=== PATIENT | female | born 1975 | race Caucasian/White ===

== ENCOUNTER 2018-01-20 22:53 | Emergency (ER) | payer BC ==
[~2018-01-20] VITALS: Ht 175.3 cm; Wt 86.2 kg
[~2018-01-20 22:53] MED LIST changes: -TRAZ50 PO; -Zofran Odt4 MG SL
[2018-01-21 01:02] LABS: BASOPHILS ABSOLUTE AUTO 0.02 K/mm3 (0.00-0.23); BASOPHILS PERCENT AUTO 0 % (0-2); EOSINOPHILS ABSOLUTE AUTO 0.21 K/mm3 (0.00-0.68); EOSINOPHILS PERCENT AUTO 4 % (0-6); Hematocrit 39.7 % (33.0-51.0); Hemoglobin 12.5 g/dL (11.5-16.0); IMMATURE GRAN ABSOLUTE AUTO 0.01 K/mm3 (0.00-0.10); IMMATURE GRAN PERCENT AUTO 0 % (0-1); LYMPHOCYTES ABSOLUTE AUTO 1.84 K/mm3 (0.84-5.20); LYMPHOCYTES PERCENT AUTO 32 % (21-46); MONOCYTES ABSOLUTE AUTO 0.58 K/mm3 (0.16-1.47); MONOCYTES PERCENT AUTO 10 % (4-13); Mean Corpuscular HGB 27.4 pg (26.0-34.0); Mean Corpuscular HGB Conc 31.5 g/dL (31.5-36.5); Mean Platelet Volume 9.2 fL (9.1-12.4); NEUTROPHILS ABSOLUTE AUTO 3.17 K/mm3 (1.96-9.15); NEUTROPHILS PERCENT AUTO 54 % (41-73); Platelet Count 442 K/mm3 (150-400); RDW Coefficient Variation 16.2 % (11.7-14.2); RDW Standard Deviation 52.1 fL (35.1-46.3); Red Blood Cell Count 4.56 M/mm3 (3.80-5.20); White Blood Cell Count 5.83 K/mm3 (4.00-11.30)
[2018-01-21 01:09] LABS: Mean Corpuscular Volume 87 fL (80-100)
[2018-01-21 01:21] LABS: Alanine Aminotransfer (ALT/SGP 25 U/L (12-78); Albumin, Blood 3.6 g/dL (3.4-5.0); Albumin/Globulin Ratio 0.8 (0.8-1.8); Alk Phos 51 U/L (50-136); Anion Gap 8 mmol/L (6-16); Aspartate Aminotrans (AST/SGOT 21 U/L (12-37); Bilirubin, Total 0.2 mg/dL (0.1-1.0); Blood Urea Nitrogen 7 mg/dL (8-24); Bun/Creatinine Ratio 10.9 (12.0-20.0); CO2, Blood 27 mmol/L (21-32); Chloride, Blood 105 mmol/L (98-108); Creatinine, Blood 0.64 mg/dL (0.40-1.00); Globulin, Blood 4.6 g/dL (2.2-4.0); Glomerular Filtration Rate >60 (60-); Glucose, Blood 97 mg/dL (70-99); Potassium, Blood 4.1 mmol/L (3.5-5.5); Sodium, Blood 140 mmol/L (136-145); Total Protein, Blood 8.2 g/dL (6.4-8.2)
[2018-01-21] MEDS ORDERED: TRAZ50 PO (01:39)
[2018-01-21 04:07] LABS: Troponin I <0.015 ng/mL (0.000-0.040)
[2018-01-21] MEDS ORDERED: Zofran Odt4 MG SL (04:23)
== END 2018-01-21 04:56 | disposition home or self-care (01) ==
LOC: ER 22:53
PROVIDERS: Emergency Medicine
DX: K21.9 Gastro-esophageal reflux disease without esophagitis (principal); R11.2 Nausea with vomiting, unspecified; Z88.8 Allergy status to other drugs, medicaments and biological substances; Z90.49 Acquired absence of other specified parts of digestive tract; Z98.890 Other specified postprocedural states
CPT/HCPCS: 71046; 80053; 83690; 84484; 85025; 93005; 93010; 96361; 96374; 96375; 99284; J1885; J2405; J7030

== ENCOUNTER → 2018-01-20 | Outpatient (CLI) | payer BC ==
[~2018-01-20] MED LIST: MECL25 PO; OXYACE5T PO; PROM25 PO; SCOPTP TOP; TRAZ50 PO; Zofran Odt4 MG SL
[2018-01-20 15:04] LABS: BASOPHILS ABSOLUTE AUTO 0.02 K/mm3 (0.00-0.23); BASOPHILS PERCENT AUTO 0 % (0-2); EOSINOPHILS PERCENT AUTO 4 % (0-6); Hematocrit 38.3 % (33.0-51.0); Hemoglobin 12.3 g/dL (11.5-16.0); IMMATURE GRAN ABSOLUTE AUTO 0.01 K/mm3 (0.00-0.10); IMMATURE GRAN PERCENT AUTO 0 % (0-1); LYMPHOCYTES ABSOLUTE AUTO 1.51 K/mm3 (0.84-5.20); LYMPHOCYTES PERCENT AUTO 32 % (21-46); MONOCYTES ABSOLUTE AUTO 0.46 K/mm3 (0.16-1.47); MONOCYTES PERCENT AUTO 10 % (4-13); Mean Corpuscular HGB Conc 32.1 g/dL (31.5-36.5); Mean Corpuscular Volume 84 fL (80-100); Mean Platelet Volume 9.3 fL (9.1-12.4); NEUTROPHILS PERCENT AUTO 53 % (41-73); Platelet Count 423 K/mm3 (150-400); RDW Coefficient Variation 16.2 % (11.7-14.2); RDW Standard Deviation 50.3 fL (35.1-46.3); Red Blood Cell Count 4.55 M/mm3 (3.80-5.20)
[2018-01-20 15:24] LABS: Alanine Aminotransfer (ALT/SGP 25 U/L (12-78); Albumin, Blood 3.6 g/dL (3.4-5.0); Albumin/Globulin Ratio 0.9 (0.8-1.8); Alk Phos 51 U/L (50-136); Anion Gap 6 mmol/L (6-16); Aspartate Aminotrans (AST/SGOT 16 U/L (12-37); Bilirubin, Total 0.2 mg/dL (0.1-1.0); Blood Urea Nitrogen 7 mg/dL (8-24); Bun/Creatinine Ratio 10.1 (12.0-20.0); CO2, Blood 26 mmol/L (21-32); Chloride, Blood 108 mmol/L (98-108); Creatinine, Blood 0.69 mg/dL (0.40-1.00); Globulin, Blood 4.2 g/dL (2.2-4.0); Glomerular Filtration Rate >60 (60-); Glucose, Blood 90 mg/dL (70-99); Potassium, Blood 3.8 mmol/L (3.5-5.5); Sodium, Blood 140 mmol/L (136-145); Total Protein, Blood 7.8 g/dL (6.4-8.2)
== END ==
LOC: LAB SHORT 14:57 → LAB 14:57
PROVIDERS: Physician Assistant
DX: R10.9 Unspecified abdominal pain (principal)
CPT/HCPCS: 80053; 83690; 85025

== ENCOUNTER → 2018-09-07 | Outpatient (CLI) | payer BC ==
[~2018-09-07] MED LIST changes: +Augmentin 875-1 EACH PO; +HYDR1TAB94 PO; +Omeprazole20 M1; +TRAZ50 PO; +Zofran Odt4 MG SL
== END ==
LOC: LAB 10:00 → LAB SHORT 10:00
PROVIDERS: Student in an Organized Health Care Education/Training Program
DX: Z12.4 Encounter for screening for malignant neoplasm of cervix (principal)
CPT/HCPCS: G0145

== ENCOUNTER 2018-09-10 00:20 | Emergency (ER) | payer OTHER, BC ==
[~2018-09-10] VITALS: Ht 175.3 cm; Wt 90.7 kg
[~2018-09-10 00:20] MED LIST changes: -Augmentin 875-1 EACH PO; -HYDR1TAB94 PO; -Omeprazole20 M1
[2018-09-10] MEDS ORDERED: HYDR1TAB94 PO (00:57)
[2018-09-10] MEDS ORDERED: Omeprazole20 M1 (00:57)
[2018-09-10] MEDS ORDERED: Augmentin 875-1 EACH PO (01:01)
[2018-09-11 06:19] LABS: HCV ANTIBODY 0.1 (0.0-0.9); HIV SCREEN 4TH GENERATION WRFX Non Reactive (Non Reactive)
== END 2018-09-10 02:15 | disposition home or self-care (01) ==
LOC: ER 00:20
PROVIDERS: Emergency Medicine
DX: S41.152A Open bite of left upper arm, initial encounter (principal); W50.3XXA Accidental bite by another person, initial encounter; Z79.899 Other long term (current) drug therapy
CPT/HCPCS: 36415; 84460; 86317; 86803; 87389; 90471; 90714; 99283

== ENCOUNTER 2020-11-27 06:12 | Day surgery (SDC) | payer BC ==
[~2020-11-27] VITALS: Ht 175.3 cm; Wt 90.6 kg
[~2020-11-27 06:12] MED LIST changes: +Augmentin 875-1 EACH PO; +HYDR1TAB94 PO; +Omeprazole20 M1
[2020-11-27] MEDS ORDERED: Atarax10 MG PO (07:00)
--- NOTE | 2020-11-27 07:15 | NUR ---
11/27/20 0715 CONNIE [facility] PT TO PRE OP, IV IN L HAND. PT VSS ON ROOM AIR. LUNG SOUNDS CLEAR THROUGHOUT. ENGAGED IN PRE OP TEACHING/POST OP TEACHING. ALL QUESTIONS ASKED AND ANSWERED.
--- NOTE | 2020-11-27 07:44 | NUR ---
11/27/20 0744 Ish Bender BUPIVACAINE 0.5% 30 MLS MIXED WITH EPI 0.15 MLS TO CONSTITUTE BUPIVACAINE 0.5% 1:200,000 PER ORDER, FOR INJECTION AT OPSITE BY DR. CAMEJO.
== END 2020-11-27 09:05 | disposition home or self-care (01) ==
LOC: ORSCSDS 06:12
PROVIDERS: Podiatrist Foot & Ankle Surgery
PROC: 0QSQ04Z Reposition Right Toe Phalanx with Internal Fixation Device, Open Approach (ICD-10-PCS; principal; 2020-11-27 07:30)
PROC: 0QSN04Z Reposition Right Metatarsal with Internal Fixation Device, Open Approach (ICD-10-PCS; principal; 2020-11-27 07:30)
DX: M20.11 Hallux valgus (acquired), right foot (principal); K21.9 Gastro-esophageal reflux disease without esophagitis; Z79.899 Other long term (current) drug therapy
CPT/HCPCS: C1713; C1769; J0171; J0690; J1100; J2250; J2405; J2704; J3010

== ENCOUNTER 2022-09-06 23:30 | Emergency (ER) | payer OTHER, BC ==
[~2022-09-06] VITALS: Ht 175.3 cm; Wt 90.7 kg
[~2022-09-06 23:30] MED LIST changes: +Atarax10 MG PO
== END 2022-09-07 00:15 | disposition home or self-care (01) ==
LOC: ER 23:30
DX: Z77.098 Contact with and (suspected) exposure to other hazardous, chiefly nonmedicinal, chemicals (principal); Z79.899 Other long term (current) drug therapy
CPT/HCPCS: 99282

== ENCOUNTER → 2025-05-22 | Outpatient (CLI) | payer BC | LOC: LAB SHORT 15:47 → LAB 15:47 | PROVIDERS: Family Medicine | DX: Z01.419 Encounter for gynecological examination (general) (routine) without abnormal findings (principal) | CPT/HCPCS: 87624; G0123 ==

== ENCOUNTER 2025-06-11 20:44 | Emergency (ER) | payer OTHER, BC ==
[~2025-06-11] VITALS: Ht 175.3 cm; Wt 81.7 kg
[2025-06-11 20:55] VITALS: BP 156/80
== END 2025-06-11 23:12 | disposition home or self-care (01) ==
LOC: ER 20:44
DX: S50.12XA Contusion of left forearm, initial encounter (principal); M25.532 Pain in left wrist; W50.4XXA Accidental scratch by another person, initial encounter; X50.1XXA Overexertion from prolonged static or awkward postures, initial encounter
CPT/HCPCS: 73090; 73110; 90471; 90715; 99283-25; A9270

== ENCOUNTER → 2025-07-16 | Outpatient (CLI) | payer BC | LOC: LAB 17:09 → LAB SHORT 17:09 | DX: R30.0 Dysuria (principal) | CPT/HCPCS: 87086 ==

== ENCOUNTER 2025-08-18 10:51 | Day surgery (SDC) | payer BC ==
[2025-08-18] VITALS (31 sets, daily range): BP systolic 96–209; BP diastolic 67–184
[~2025-08-18] VITALS: Ht 175.3 cm; Wt 81.5 kg
[~2025-08-18 10:51] MED LIST changes: +Inderal40 MG PO; +OMEP20ER PO; -Omeprazole20 M1; +PANT40 PO
[2025-08-18] MEDS ORDERED: Norco 10-325 T1 EACH PO (12:30)
[2025-08-18] MEDS ORDERED: IBUP400 PO (12:31)
[2025-08-18] MEDS ORDERED: EXCEDRIN PM HE1 EACH PO (12:31)
--- NOTE | 2025-08-18 12:46 | NUR ---
Ambulatory in Day Surgery History, Chart, Medications and Allergies reviewed before start of procedure. Pre-Op teaching done. Pt verbalizes understanding. Patient States Post-Procedure ride home has been arranged.
[2025-08-18] MEDS ORDERED: Benzocaine Oral Spray 0.5ML UD ONE (13:12)
[2025-08-18] MEDS ORDERED: FentaNYL Citrate 50 MCG/ML 2 ML Injection ONE (13:22)
[2025-08-18] MEDS ORDERED: Midazolam HCl 1MG / ML 2ML Vial ONE (13:22)
--- NOTE | 2025-08-18 13:31 | NUR ---
08/18/25 John1 Keli Guevara CONFIRMED AND REVIEWED H&P, MEDCICATIONS, ALLERGIES, MEDICAL HISTORY, RESPIRATORY HISTORY, VITAL SIGNS, 3-LEAD EKG, CONSENTS, AND PHYSICIAN ORDERS. PATIENT CONFIRMS NPO STATUS AND AGREES WITH SCHEDULED PROCEDURE. MONITOR INTACT WITH CONTINUOUS PULSE OXIMETRY, CAPNOGRAPHY, 3-LEAD EKG, INTERMITTENT BP. SUPPLEMENTAL O2 TO BE TITRATED THROUGHOUT PROCEDURE TO MAINTAIN O2 SATURATION ABOVE 90%. PATIENT DETERMINED TO BE ASA APPROPRIATE FOR PROPOFOL SEDATION PRIOR TO START OF PROCEDURE BY . MALLAMPATI CLASS 2 AIRWAY: COMPLETE VISUALIZATION OF THE UVULA.
--- NOTE | 2025-08-18 14:51 | NUR ---
Discharge instructions reviewed with patient. Patient verbalizes understanding. Copy given to patient to take home. Patient States Post-Procedure ride home has been arranged. Discharged via wheelchair to private car for ride home.
== END 2025-08-18 14:51 | disposition home or self-care (01) ==
LOC: ORSCMMR 10:51 → ORD 11:45 → ORSCMMR 12:45
PROVIDERS: Family Medicine
PROC: 0DB78ZX Excision of Stomach, Pylorus, Via Natural or Artificial Opening Endoscopic, Diagnostic (ICD-10-PCS; principal; 2025-08-18 12:45)
PROC: 0DJD8ZZ Inspection of Lower Intestinal Tract, Via Natural or Artificial Opening Endoscopic (ICD-10-PCS; principal; 2025-08-18 12:45)
DX: Z12.11 Encounter for screening for malignant neoplasm of colon (principal); K21.9 Gastro-esophageal reflux disease without esophagitis; R13.14 Dysphagia, pharyngoesophageal phase; K31.7 Polyp of stomach and duodenum; K64.8 Other hemorrhoids; K64.4 Residual hemorrhoidal skin tags; K44.9 Diaphragmatic hernia without obstruction or gangrene; E78.5 Hyperlipidemia, unspecified; Z79.899 Other long term (current) drug therapy
CPT/HCPCS: 43239; G0121; 88305; 88341; 88342; A9270; J2250; J2704; J3010; J7120